=== PATIENT | male | born 1985 | race American Indian/Alaskan Native ===

== ENCOUNTER 2019-09-22 11:54 | Emergency (ER) | payer OTHER ==
[~2019-09-22] VITALS: Ht 177.8 cm; Wt 71.2 kg
[~2019-09-22 11:54] MED LIST: DEXTROAMP-AMPHE30 MG PO
--- OUTSIDE RECORDS SUMMARY | 2019-09-22 12:08 | XMS ---
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 Care History Medical/Surgical 09/14/2019 [facility] \T\middot;\T\nbsp; PATIENT- [facility] ELIGIBLE \T\middot;\T\nbsp; [facility]. \T\middot;\ T\nbsp; [facility] CAN SEE PATIENTS SAME DAY FOR APTS IF PATIENT CALLS FIRST THING IN THE MORNING. Kemi VISIT COUNT (12 MO.) 2 [facility] TOTAL 2 NOTE: Visits indicate total known visits. ED/UCC VISIT TRACKING (12 MO.) 09/22/2019 11:55 [facility] TYPE: Emergency COMPLAINT: - POSS INFECTION FROM PREV WOUND 09/12/2019 17:[address] [facility] [place] TYPE: Emergency COMPLAINT: - LACERATION RT HAND/THUMB DIAGNOSES: - Laceration w/o fb of left thumb w/o damage to nail, init - Attention-deficit hyperactivity disorder, unspecified type - Oth foreign body or object entering through skin, init - Nicotine dependence, unspecified, uncomplicated INPATIENT VISIT TRACKING (12 MO.) No inpatient visits to display in this time frame [email or web address]
[2019-09-22] MEDS ORDERED: BUPRENORPHINE HC8 MG SL (12:23)
[2019-09-22] MEDS ORDERED: DOXYCYCLINE HY100 MG PO (13:15)
== END 2019-09-22 13:45 | disposition home or self-care (01) ==
LOC: ED 11:54
DX: S61.011D Laceration without foreign body of right thumb without damage to nail, subsequent encounter (principal); L08.9 Local infection of the skin and subcutaneous tissue, unspecified; F90.9 Attention-deficit hyperactivity disorder, unspecified type; F17.200 Nicotine dependence, unspecified, uncomplicated; Z79.899 Other long term (current) drug therapy
CPT/HCPCS: 96372; 99282-25; 99406; J0561

== ENCOUNTER 2019-11-08 10:54 | Emergency (ER) | payer BC, OTHER ==
[~2019-11-08] VITALS: Ht 177.8 cm; Wt 71.2 kg
[~2019-11-08 10:54] MED LIST changes: +BUPRENORPHINE HC8 MG SL; +DOXYCYCLINE HY100 MG PO
--- OUTSIDE RECORDS SUMMARY | 2019-11-08 10:56 | XMS ---
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 Care History Medical/Surgical 09/14/2019 [facility] \T\middot;\T\nbsp; PATIENT- [facility] ELIGIBLE \T\middot;\T\nbsp; PLEASE REFER PATIENT TO [facility] FOR NON EMERGENT MEDICAL NEEDS. \T\middot;\ T\nbsp; [facility] CAN SEE PATIENTS SAME DAY FOR APTS IF PATIENT CALLS FIRST THING IN THE MORNING. E.D. VISIT COUNT (12 MO.) 3 [facility]. TOTAL 3 NOTE: Visits indicate total known visits. 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
[2019-11-08] MEDS ORDERED: AMOX TR-K CLV1 EAC1 PO (11:05)
== END 2019-11-08 12:57 | disposition home or self-care (01) ==
LOC: ED 10:54
DX: H69.91 Unspecified Eustachian tube disorder, right ear (principal); J06.9 Acute upper respiratory infection, unspecified; F90.9 Attention-deficit hyperactivity disorder, unspecified type; F17.200 Nicotine dependence, unspecified, uncomplicated; Z79.899 Other long term (current) drug therapy
CPT/HCPCS: 99283

== ENCOUNTER 2024-01-04 18:17 | Emergency (ER) | payer OTHER ==
[~2024-01-04] VITALS: Ht 177.8 cm; Wt 99.0 kg
[~2024-01-04 18:17] MED LIST changes: +AMOX TR-K CLV1 EAC1 PO
[2024-01-04] MEDS ORDERED: DEXAMETHASONE SOD PHOS 10 MG/ML VIAL IV ONE (19:30)
[2024-01-04] MEDS ORDERED: FLONASE ALLERG9.9 ML NAS (19:51)
[2024-01-04] MEDS ORDERED: AMOXICILLIN500 MG PO (19:51)
[2024-01-04] MEDS ORDERED: AMOXICILLIN 500 MG CAP PO ONE (20:00)
[2024-01-04] MEDS ORDERED: DEXAMETHASONE SOD PHOS 10 MG/ML VIAL IM ONE (20:00)
[2024-01-04 20:03] VITALS: BP 136/79
== END 2024-01-04 20:02 | disposition home or self-care (01) ==
LOC: ED 18:17
DX: J02.9 Acute pharyngitis, unspecified (principal); H69.81 Other specified disorders of Eustachian tube, right ear; F17.200 Nicotine dependence, unspecified, uncomplicated
CPT/HCPCS: 87651; 96372; 99283; J1100